=== PATIENT | female | born 1965 | race Caucasian/White ===

== ENCOUNTER 2024-09-27 09:57 | Day surgery (SDC) | payer OTHER, SELFPAY ==
[2024-09-23 14:50] VITALS: BMI 25.7
--- NOTE | 2024-09-26 10:26 | HO.ANESPROP2 ---
Documented by User: Shruthi Montano NP 09/26/24 10:27 HPI - Anesthesia Eval Consult details Narrative: 59yo F for Colonoscopy FOR[facility], [facility] Past Medical History Medical History Basal cell carcinoma Osteoarthritis PAC (premature atrial contraction) PVC (premature ventricular contraction) Surgical History Surgical History Hx of nasal septoplasty H/O colonoscopy Social History Social History Household Members: Spouse Patient Tobacco Use Status: Never used Tobacco Use of substances other than those prescribed or required for medical reasons: No Have you been hit, kicked, punched, or otherwise hurt by someone within the past year? If so, by whom?: No Are you DNR?: No Advance Directives: No Advance Directives Information Provided: Yes Recently lost weight without trying: No Nutrition Risks: No Nutritional Risk Meds Allergies Allergy/AdvReac Type Severity Reaction Status Date / Time No Known Allergies Allergy Verified 09/27/24 10:11 Home Medications ?Medication ?Instructions ?Recorded ?Confirmed ?Last Taken ?Type calcium carbonate 600 mg-vitamin 1 tab PO DAILY 09/23/24 09/27/24 09/20/24 History D3 5 mcg (200 unit) tablet multivitamin 1 tab PO DAILY 09/23/24 09/27/24 09/20/24 History Fish Oil 1 tab PO DAILY 09/27/24 09/27/24 09/20/24 History Exam Height,Weight and Vital Signs: Height 5 ft 7.5 in Weight 75.41 kg Assessment and Plan Assessment Anesthesia Assessment: Chart Reviewed Documented by User: Sophy Monreal MD 09/27/24 10:27 [facility] Past Medical History Medical History Basal cell carcinoma Osteoarthritis PAC (premature atrial contraction) PVC (premature ventricular contraction) Family History Family history of problems with anesthesia: No Surgical History Surgical History Hx of nasal septoplasty H/O colonoscopy History of Problems with Anesthesia: No Social History Social History Household Members: Spouse Patient Tobacco Use Status: Never used Tobacco Use of substances other than those prescribed or required for medical reasons: No Have you been hit, kicked, punched, or otherwise hurt by someone within the past year? If so, by whom?: No Are you DNR?: No Advance Directives: No Advance Directives Information Provided: Yes Recently lost weight without trying: No Nutrition Risks: No Nutritional Risk Meds Allergies Allergy/AdvReac Type Severity Reaction Status Date / Time No Known Allergies Allergy Verified 09/27/24 10:11 Home Medications ?Medication ?Instructions ?Recorded ?Confirmed ?Last Taken ?Type calcium carbonate 600 mg-vitamin 1 tab PO DAILY 09/23/24 09/27/24 09/20/24 History D3 5 mcg (200 unit) tablet multivitamin 1 tab PO DAILY 09/23/24 09/27/24 09/20/24 History Fish Oil 1 tab PO DAILY 09/27/24 09/27/24 09/20/24 History Exam Airway Mallampati Class: II TM Dist: >3cm Neck ROM: Full Heart: rrr Lungs: cta Assessment and Plan Assessment Anesthesia Assessment: Anesthesia Plan Discussed Final Anesthetic Review Family History of Problems with Anesthesia: No History of Problems with Anesthesia: No NPO: Yes ASA Class: II Final Preanesthetic Review: No Changes in Pt Med Stat, Meds/Allgs Chart Reviewed, Consent Obtained/Reviewed and Anes Risks/Benef Reviewed Patient Risk: Low Procedure Risk: Low Anesthetic Plan Anesthetic Plan: MAC: Disposition: Standard PACU
[2024-09-27 10:03] VITALS: BMI 25.5
--- NOTE | 2024-09-27 10:21 | MHC.SHP ---
Pre-Procedural Eval Section A - 24 Hr Update-Section A only Date of Service: 09/27/24 Section B - Complete if H&P > 30 days Chief Complaint: screening Details of Present Illness: see H&P no changes Relevant Family History (Specify if Yes): No Relevant Social History: None Present Medications: see Short Stay Collaborative assessment Medical History: No relevant PMH History of Previous Operations: No relevant previous surgery Allergies: Allergies Allergy/AdvReac Type Severity Reaction Status Date / Time No Known Allergies Allergy Verified 09/27/24 10:11 Review of Systems Sugical H&P ROS: Negative: Constitution, Cardiovascular, Respiratory, Neurological, Psychiatric, Hem-Onc, Allergic/Immunologic, Gastrointestinal, Genitourinary, Musculoskeletal, Integumentary, Endocrine and Eyes/Ears/Nose/Throat Exam Surgical H&P Exam: Normal: HEENT, Normal: Heart, Normal: Lungs, Normal: Extremities, Normal: Abdomen, Normal: Skin and Normal: Neurological Plan Diagnosis/Plan: Unchanged I have reviewed the history and physical and performed a pertinent physical examination on my patient. No changes have occurred unless specified. Time Spent With Patient Time: Total time managing care of this patient today ____ minutes.
[2024-09-27 10:28] VITALS: BP 110/69; PULSE 67; RESP 16; TEMP 36.2; O2SAT 98
[2024-09-27] MEDS: Lactated Ringers 1,000 ML 100 ML IVCONT (10:29)
[2024-09-27 10:58] VITALS: BP 93/51; PULSE 63; RESP 16; TEMP 36.1; O2SAT 97
[2024-09-27 11:05] VITALS: BP 102/60; PULSE 61; RESP 16; O2SAT 97
[2024-09-27 11:20] VITALS: BP 107/59; PULSE 60; RESP 16; TEMP 36.1; O2SAT 97
--- NOTE | 2024-09-27 11:29 | OP_ITS ---
DATE OF SERVICE: 09/27/2024 SURGEON: Hakan May MD INDICATIONS: Colon cancer screening. PREOPERATIVE DIAGNOSIS: POSTOPERATIVE DIAGNOSIS: PROCEDURE PERFORMED: Colonoscopy to the terminal ileum with snare polypectomy. ESTIMATED BLOOD LOSS: COMPLICATIONS: ANESTHESIA: Monitored anesthesia care. ASSISTANTS: SPECIMENS: DESCRIPTION OF PROCEDURE: A history and physical performed. The risks and benefits of the procedure were explained to the patient. Informed consent was obtained. The patient was placed in the left lateral decubitus position. A digital rectal exam was performed and was found to be normal. The Olympus pediatric videocolonoscope was introduced into the rectum and advanced to the cecum. The cecum was identified by transillumination, palpation, and identification of ileocecal valve. Examination was performed. The scope was removed. She tolerated the procedure well and was returned to recovery area in stable condition. FINDINGS: The terminal ileum was examined and appeared normal. The visualized colonic mucosa was normal. The quality of the prep was good at 50 cm from the anal verge was a less than 10 mm sessile polyp, which was removed with a cold snare and recovered via suction. No other polyps were identified. Retroflexed examination showed moderate-sized internal hemorrhoids. IMPRESSION: Colon polyp. RECOMMENDATION: Follow up the biopsy results. MD RAMBO Menjivar/CHRISTINE / [id number] MTDD
== END 2024-09-27 11:48 | disposition home or self-care (01) ==
PROVIDERS: PCP Internal Medicine Geriatric Medicine; Visit Provider Internal Medicine Gastroenterology
PROC: 0DJD8ZZ Inspection of Lower Intestinal Tract, Via Natural or Artificial Opening Endoscopic (ICD-10-PCS; CPT 45378; principal; 2024-09-27 11:30)
DX: Z12.11 Encounter for screening for malignant neoplasm of colon (principal); Z80.0 Family history of malignant neoplasm of digestive organs; D12.5 Benign neoplasm of sigmoid colon; K64.8 Other hemorrhoids; C44.91 Basal cell carcinoma of skin, unspecified; I49.1 Atrial premature depolarization; I49.3 Ventricular premature depolarization; Z79.899 Other long term (current) drug therapy
CPT/HCPCS: 45385; 88305; J2704